=== PATIENT | male | born 1985 | race African-American/Black ===

== ENCOUNTER 2025-06-09 15:36 | Inpatient (IN) | payer OTHER ==
[~2025-06-09] VITALS: Ht 172.7 cm; Wt 58.6 kg
[2025-06-09 16:11] LABS: PLATELET COUNT (AUTO) 285 K/uL (150-450); RED BLOOD CELL COUNT(AUTO) 4.87 MIL/uL (4.50-5.90); RED CELL DISTRIBUTION WIDTH 13.1 % (11.5-14.5); WHITE BLOOD COUNT (AUTO) 7.5 K/uL (4.5-11.0)
[2025-06-09 16:20] LABS: CALCIUM, TOTAL 9.1 mg/dL (8.8-10.5); CREATININE 0.76 mg/dL (0.60-1.30); GLOMERULAR FILTR. RATE CALC > 60 mL/min (>60); GLUCOSE,RANDOM 95 mg/dL (70-110); SODIUM SERUM 137 mmol/L (136-145); UREA NITROGEN, BLOOD 10 mg/dL (7-18)
[2025-06-09 16:37] LABS: ASPARTATE AMINOTRANSFERASE 32.0 U/L (15-37); CREATINE KINASE, TOTAL ONLY 148.0 U/L (39-308); TOTAL PROTEIN, SERUM 7.2 g/dL (6.4-8.2)
[2025-06-09 16:38] LABS: TROPONIN I-HIGH SENSITIVITY 5 ng/L (<76)
[2025-06-09] MEDS ORDERED: ONDANSETRON HCL 4 MG/2 ML VIAL IVP PRN (16:45)
[2025-06-09] MEDS ORDERED: ACETAMINOPHEN 325 MG TABLET PO PRN (16:45)
[2025-06-09 18:54] LABS: TROPONIN I-HIGH SENSITIVITY 7 ng/L (<76)
[2025-06-09] MEDS: IBUPROFEN 400 MG TABLET PO SCH (22:22)
[2025-06-09] MEDS: DOCUSATE SODIUM 100 MG CAPSULE PO SCH (22:22)
[2025-06-09] MEDS: HEPARIN SODIUM,PORCINE 5,000 UNITS/ML VIAL SQ SCH (23:26)
[2025-06-10 05:32] LABS: PLATELET COUNT (AUTO) 271 K/uL (150-450); RED BLOOD CELL COUNT(AUTO) 4.79 MIL/uL (4.50-5.90); RED CELL DISTRIBUTION WIDTH 13.2 % (11.5-14.5); WHITE BLOOD COUNT (AUTO) 5.5 K/uL (4.5-11.0)
[2025-06-10 05:52] LABS: CALCIUM, TOTAL 8.4 mg/dL (8.8-10.5); CREATININE 0.87 mg/dL (0.60-1.30); GLOMERULAR FILTR. RATE CALC > 60 mL/min (>60); GLUCOSE,RANDOM 102 mg/dL (70-110); SODIUM SERUM 140 mmol/L (136-145); UREA NITROGEN, BLOOD 9 mg/dL (7-18)
[2025-06-10 06:06] LABS: TROPONIN I-HIGH SENSITIVITY 6 ng/L (<76)
[2025-06-10 10:00] VITALS: BP 114/74; PULSE 69; RESP 18; TEMP 98.1; O2SAT 100
[2025-06-10 12:00] VITALS: BP 100/76; PULSE 67; RESP 18; TEMP 97.7; O2SAT 100
[2025-06-10] MEDS ORDERED: COLC-3 PO (14:26)
[2025-06-10] MEDS ORDERED: OMEP-148 PO (14:28)
[2025-06-10] MEDS ORDERED: IBUP-2077 PO (14:28)
[2025-06-10] MEDS ORDERED: COLCHICINE 0.6 MG TABLET PO SCH (21:00)
[2025-06-11] MEDS ORDERED: FAMOTIDINE 20 MG TABLET PO SCH (09:00)
== END 2025-06-10 15:00 | DRG 314 ==
LOC: EMS 15:41 → EDH 16:38 → 5N 06-10 10:00
PROVIDERS: ADMIT Internal Medicine; ATTEND Internal Medicine
DX: I31.9 Disease of pericardium, unspecified (principal); E43 Unspecified severe protein-calorie malnutrition; Z68.1 Body mass index [BMI] 19.9 or less, adult; Z91.199 Patient's noncompliance with other medical treatment and regimen due to unspecified reason
CPT/HCPCS: 71045; 80048; 80076; 82550; 83735; 83880; 84484; 85025; 85610; 85651; 85730; 86140; 93005; 93306; 99285; G0378; J1644; 36415-L1; 36415-TC